=== PATIENT | male | born 1965 | race Caucasian/White ===

== ENCOUNTER 2018-07-21 21:44 | Emergency (ER) | payer OTHER ==
[~2018-07-21] VITALS: Ht 177.8 cm; Wt 89.8 kg
[2018-07-21] MEDS ORDERED: PANT40 PO (21:55)
[2018-07-21] MEDS ORDERED: Cleocin HCl150 MG PO (23:06)
== END 2018-07-21 23:25 | disposition home or self-care (01) ==
LOC: ER 21:44
DX: K11.20 Sialoadenitis, unspecified (principal); Z88.0 Allergy status to penicillin; Z88.2 Allergy status to sulfonamides; Z79.899 Other long term (current) drug therapy
CPT/HCPCS: 70491; 96374-59; 99283-25; A9270-GY; J1885; Q9967